=== PATIENT | female | born 1995 | race Native Hawaiian/Other Pacific Islander ===

== ENCOUNTER 2020-04-20 01:48 | Observation (INO) | payer OTHER ==
[~2020-04-20] VITALS: Ht 175.3 cm; Wt 97.1 kg
[2020-04-20] VITALS (7 sets, daily range): BP systolic 101–128; BP diastolic 58–101; TEMP 97.8–98.6; Ht 175.3 cm; Wt 97.1 kg
[2020-04-20 02:01] LABS: PLATELET COUNT 236 K/uL (152-353)
[2020-04-20 02:14] LABS: POTASSIUM 3.2 mmol/L (3.6-5.2)
== END 2020-04-20 15:30 | disposition home or self-care (01) ==
LOC: ED 01:48 → MED/SURG 03:10
PROVIDERS: Emergency Medicine; ADMIT Internal Medicine
DX: F10.129 Alcohol abuse with intoxication, unspecified (principal); F12.90 Cannabis use, unspecified, uncomplicated; Y90.6 Blood alcohol level of 120-199 mg/100 ml; E86.0 Dehydration; E87.6 Hypokalemia; F19.10 Other psychoactive substance abuse, uncomplicated
CPT/HCPCS: 51702; 80053; 80307; 80320; 81025; 85027; 93005; 96365; 96366; 99220; 99284; G0378; J3411; J3475; J3490